=== PATIENT | male | born 1990 | race American Indian/Alaskan Native ===

== ENCOUNTER 2017-09-02 10:45 | Emergency (ER) | payer BC ==
[2017-09-02] MEDS ORDERED: XYLOCAINE 1% 20 mL INFILTRATI ONE (12:20)
[2017-09-02] MEDS ORDERED: MOTRIN PO ONE (12:20)
[2017-09-02] MEDS ORDERED: BACTRIM DS PO ONE (12:22)
--- NOTE | 2017-09-02 12:23 | Emergency Department Report ---
Abscess Boil HPI - HPI Chief Complaint: Skin/Abscess/Foreign Body Stated Complaint: BOIL Time Seen by Provider: 09/02/17 12:19 Duration: 2 Days Location: Other (r buttocks) Severity: Mild History: Yes Fever (mild low grade), Yes Pain, Yes Purulent Drainage, Yes Previous History (x 1), No Numbness, No Foreign Body, No Insect Bite Home Medications: Previous Rx's Medication Instructions Recorded Last Taken Type Sulfamethoxazole/Trimethoprim 1 each PO BID #14 tablet 09/02/17 Unknown Rx [Bactrim DS TAB] Allergies/Adverse Reactions: Allergies Allergy/AdvReac Type Severity Reaction Status Date / Time No Known Allergies Allergy Verified 10/08/14 12:20 ED Review of Systems ROS: Stated complaint: BOIL Other details as noted in HPI Comment: All other systems reviewed and negative Skin: lesions ED Past Medical Hx - Past Medical History Previous Medical History?: No - Surgical History Past Surgical History?: No - Social History Smoking Status: Never Smoker Substance Use Type: Alcohol - Medications Home Medications: Home Medications Medication Instructions Recorded Confirmed Last Taken Type Sulfamethoxazole/Trimethoprim 1 each PO BID #14 tablet 09/02/17 Unknown Rx [Bactrim DS TAB] ED Abscess Boil Physical Exam - Exam General: Vital signs noted. No distress. Alert and acting appropriately. Size: 3 cm Exam: Yes Tenderness, Yes Fluctuance, Yes Normal Neurologic Exam, Yes Normal Circulation, No Surrounding Cellulites/Erythema, No Lymphangitis, No Crepitation , No Heart Murmur I & D Note - I & D Note I & D Note: 1% lido 3 ml. opened w 10 blade. mod purulent dc. wound cleaned. pt educated. wound dressed ED Course Vital Signs 09/02/17 10:49 Temperature 99.8 F H Pulse Rate 83 Respiratory 20 Rate Blood Pressure 127/73 O2 Sat by Pulse 98 Oximetry - Reevaluation(s) Reevaluation #1: 09/02/17 12:41 vss nad non toxic non ill appearing id medicated discussed gen surg follow up dc home w dc poc Critical care attestation.: If time is entered above; I have spent that time in minutes in the direct care of this critically ill patient, excluding procedure time. ED Medical Decision Making - Medical Decision Making non toxic - Differential Diagnosis abscess ED Disposition Clinical Impression: Abscess Disposition: DC-01 TO HOME OR SELFCARE Is pt being admited?: No Does the pt Need Aspirin: No Condition: Stable Instructions: Abscess (ED) Additional Instructions: epsom salts three times per day for 20 min each time meds as ordered today allow wound to drain follow up pcp next week to be sure healing motrin 800 mg over the counter with food every 8 hours for pain or fever should follow up with general surg to be sure this goes away and does not come back again Prescriptions: Sulfamethoxazole/Trimethoprim [Bactrim DS TAB] 1 each PO BID #14 tablet Referrals: PRIMARY CAREMD [Primary Care Provider] - 3-5 Days CHACHO ALARCON MD [Staff Physician] - 3-5 Days Time of Disposition: 12:20
[2017-09-02 13:23] VITALS: BP 122/73
== END 2017-09-02 13:23 | disposition home or self-care (01) ==
LOC: ED 10:45
DX: L02.31 Cutaneous abscess of buttock (principal); R50.9 Fever, unspecified